=== PATIENT | male | born 1965 ===

== ENCOUNTER 2018-11-14 09:25 | Outpatient (CLI) | payer BC ==
[2018-11-17 19:17] LABS: Vitamin D, 25-OH, D2 27 ng/mL
== END 2018-11-14 09:26 | disposition home or self-care (01) ==
LOC: LAB 09:25
PROVIDERS: ATTEND Internal Medicine
DX: E55.9 Vitamin D deficiency, unspecified (principal); R73.03 Prediabetes
CPT/HCPCS: 36415; 82306; 83036